=== PATIENT | female | born 1970 | race Caucasian/White ===

== ENCOUNTER 2021-08-02 23:39 | Emergency (ER) | payer OTHER, MEDICAID, SELFPAY ==
[2021-08-02 23:48] VITALS: BP 116/61; PULSE 104; RESP 16; TEMP 36.6; O2SAT 96
[2021-08-02 23:56] LABS: Add Manual Diff / Slide Review NO; Basophils Absolute Auto 0 /uL (0-100); Basophils Percent Auto 0.4 % (0-2); Eosinophils Absolute Auto 100 /uL (0-450); Eosinophils Percent Auto 1.4 % (2-4); Hematocrit 38.4 % (36-46); Hemoglobin 13.1 g/dL (12.0-16.0); Lymphocytes Absolute Auto 2000 /uL (1100-4500); Lymphocytes Percent Auto 20.7 % (25-40); Mean Corpuscular HGB Conc 34.2 % (30-36); Mean Corpuscular Hemoglobin 32.9 PG (26-34); Mean Corpuscular Volume 96.3 fL (80-100); Monocytes Absolute Auto 600 /uL (0-900); Monocytes Percent Auto 6.1 % (3-14); Neutrophils Absolute Auto 6800 /uL (1500-7000); Neutrophils Percent Auto 71.4 % (50-75); Platelet Count 256 X10^3/uL (150-400); Red Blood Cell Count 3.99 X10^6/uL (4.0-5.2); White Blood Cell Count 9.6 X10^3/uL (4.5-11.0)
[2021-08-03] VITALS (25 sets, daily range): BP systolic 98–114; BP diastolic 48–56; PULSE 66–80; RESP 12–52; O2SAT 96–100
[2021-08-03 00:05] LABS: Salicylate < 1.0 mg/dL (<20)
[2021-08-03 00:06] LABS: Acetaminophen < 10 ug/mL (10-30); Alanine Aminotransferase 16 IU/L (<35); Albumin 4.1 g/dL (3.5-5.0); Albumin Globulin Ratio 1.5 (1.0-2.8); Alkaline Phosphatase 81 U/L (38-126); Aspartate Aminotransferase 22 IU/L (14-36); BUN Creatinine Ratio 21.3 (6-22); Bilirubin Total 0.3 mg/dL (0.2-1.3); Blood Urea Nitrogen 17 mg/dL (7-17); Calcium 9.2 mg/dL (8.4-10.2); Carbon Dioxide 31 mmol/L (22-32); Chloride 104 mmol/L (98-107); Estimated Glomerular Filt Rate > 60.0 mL/min (>60); Ethanol (ETOH) < 10 mg/dL; Globulin 2.8 g/dL (1.7-4.1); Glucose 132 mg/dL (70-100); HEMOLYSIS < 15 (0-50); Lipase 48 U/L (23-300); Potassium 3.4 mmol/L (3.4-5.1); Sodium 143 mmol/L (137-145); Total Protein 6.9 g/dL (6.3-8.2)
--- NOTE | 2021-08-03 00:09 | PC.NURSE ---
Call placed to Poison Control, I spoke with pharmacist Arsalan. They reccommended to monitor for a minumum of 6 hours post time of ingestion, monitor for QTc prolongation, if it is greater than 500, give 2 grams Mg Sulfate. Keep Potassium ~4. They stated that seizures, TRACE CLERK depression, and hallucinations, anticholinergic effects may be present but usually at night doses.
[2021-08-03 00:10] LABS: Pregnancy Test Serum,Qual Negative (Negative)
[2021-08-03 00:12] LABS: COVID19 -Nasal RAPID Negative (Negative)
[2021-08-03 00:31] LABS: Magnesium 1.9 mg/dL (1.6-2.3)
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
--- NOTE | 2021-08-03 07:18 | PC.NURSE ---
Pt is sleeping.
--- NOTE | 2021-08-03 08:20 | PC.NURSE ---
Pt is tossing in bed. Attempting to take off cardiac leads. Expressing being uncomfortable but not answering direct questions. Not able to stay awake at this time. VS WNL
--- NOTE | 2021-08-03 10:18 | PC.NURSE ---
Spoke with poison control. Repeating EKG, if no change no further testing needed
--- NOTE | 2021-08-03 11:09 | PC.NURSE ---
Patient is laying down in bed and appears to be sleeping.
--- NOTE | 2021-08-03 12:02 | PC.NURSE ---
Pt is up to the [facility] with RN.
[2021-08-03 12:19] LABS: Appearance Urine UA CLEAR; Bilirubin Urine UA NEGATIVE (NEGATIVE); Color Urine UA YELLOW; Glucose Urine UA NEGATIVE (Negative); Ketones Urine UA NEGATIVE (NEGATIVE); Leukocyte Esterase Urine UA NEGATIVE (NEGATIVE); Nitrite Urine UA NEGATIVE (Negative); Occult Blood Urine UA NEGATIVE (Negative); Protein Urine UA TRACE (Negative); Urobilinogen Urine UA 0.2 E.U./dL (0.2)
[2021-08-03 12:23] LABS: Ur Creatinine Normal (Normal); Ur Specific Gravity Normal (Normal); Urine Tetrahydrocannabinol Negative (Negative); Urine pH Normal (Normal)
[2021-08-03 12:24] LABS: UR Morphine/Opiate cutoff 300 Negative (Negative); Urine Amphetamines Negative (Negative); Urine Barbiturates Negative (Negative); Urine Benzodiazepines Negative (Negative); Urine Cocaine Positive (Negative); Urine MDMA Negative (Negative); Urine Methadone Positive (Negative); Urine Methamphetamines Negative (Negative); Urine Oxycodone Negative (Negative); Urine Phencyclidine Negative (Negative); Urine Tricyclic Antidepressant Positive (Negative)
[2021-08-03 12:26] LABS: pH Urine UA 6.5 (4.5-8.0)
[2021-08-03 12:31] LABS: Bacteria Urine None Seen; Culture Indicated Urine Cult Not Indicated; RBC Urine None Seen (0-5/HPF); Squamous Epithelial Cell Urine 5-10 /HPF (0-5/HPF); WBC Urine None Seen (0-5/HPF)
--- NOTE | 2021-08-03 14:10 | PC.NURSE ---
Attempted again to rouse pt. Pt still unable to stay awake
--- NOTE | 2021-08-03 18:23 | CM.SWNOTE ---
CONSULTING BUSINESS DEVELOPER Assessment CONSULTING BUSINESS DEVELOPER - Clerk Funeral Detail Assessment CONSULTING BUSINESS DEVELOPER/Clerk Funeral Detail Assessment Time Spent with Patient Start date 08/03/21 Visit Start Time 14:25 End date 08/03/21 Visit End Time 14:50 Total time Care Management spent on 25 patient visit-in minutes Mental Health Screening Include Onset, Duration, Intensity Presenting Problem Patient presents to ED via EMS after taking 8 Seraquel and a handful of Hydroxzine last evening. Precipitating Event(s) Patient endorses depression and PTSD and she was taking the medication to go to sleep. Patient Strengths Patient is open to seeking MH outpatient provider. Current Behavioral Health Provider(s) No current providers, patient Include Facility, Provider, Ph. # endorses she used to go to [facility]. Psych. Hx Mental Health and Chemical Patient endorse hx of PTSD, Dependency Cognitive Disorder, Schizophrenia, and ADD. 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 Patient's toxicology is positive for Methadone, Ticyclic Antidepressants and Cocaine. Family Hx of Behavioral Abuse Patient endorses that her partner of 10 years does not always understand and support her MH. Psychiatric Hospitalizations (date(s)/ Patient endorses hx of going location) to inpatient treatment 2-4 times before and endorses she has been to [facility]. Psychosocial information & Support Patient is 51 y/o female who Systems is currently residing at [facility], [place], operated by [facility] and without a home. Patient endorses she lives with partner of 10 years Arnel. Patient endorses her mother as support as well. School/Work Unemployed Legal Concerns Legal Matters - Outstanding Issues None reported Mental Status Orientation (Person/Place/Time) A/Ox4 Stated Mood tired Affect (Congruent with Mood?) euthymic, drowsy, full range, congruent with mood. Thought Content - Specify/Describe None reported Obsessions, Delusions, Hallucinations Thought Processes (Fttydqr-Vczqoyql-Pwqg Circumstantial Frwvuvhb-Owjsybfc-Tkktwycjiy- Wmbutdjkrpvwhf-Wrncdoo-Fwgqyczwdwli- Thought Blocking) Speech (Zyfzxc-Zarm-Kxqwtvd-Rapid-Soft- slurred, rapid Loud-Pressured) Motor (Fmbzgt-Kbybrzegh-Rjvg-Other) normal/slow, not formally assessed Insight (Lpeo-Jiam-Kvun/Limited) fair/limited Judgement (Xuep-Sujc-Opza/Limited) fair/limited Impulse Control (Adequate-Impaired) adequate Memory (Cvnixqwyo-Tpboaw-Gibnni, intact, not formally assessed Impaired-Intact) Concentration (Intact-Impaired) intact Attention (Intact-Impaired) intact Behavior (Appropriate-Inappropriate) appropriate Risk Assessment Suicidal Ideation (Plan) No Homicidal Ideation (Plan) No Comment Patient denies SI and HI Intervention Intervention CONSULTING BUSINESS DEVELOPER enters room to meet with patient. Patient endorses that she took the pills to go to sleep. Patient denies SI and states that she has taking pills before with intent to kill self and has been to inpatient hospitals before. Patient denies seeking inpatient at this ED encounter . Patient endorses that she is open to seeing a outpatient provider. Patient discusses that her partner does not understand her depression and MH and she does not always feel supported. Patient endorses she feels safe to return to home with partner. CONSULTING BUSINESS DEVELOPER provides patient with crisis contact information and a list of providers that accept her insurance. It is the opinion of this CONSULTING BUSINESS DEVELOPER that patient is safe to d/c to home. CONSULTING BUSINESS DEVELOPER meets with patient's partner and he indicates he will be a safe support for patient. CONSULTING BUSINESS DEVELOPER reviews the above with ED provider Dr. Crespo who indicates agreement and understanding. Plan RA Plan Patient to d/c to home when medically clear. TORIN Martinez
== END 2021-08-03 17:43 | disposition home or self-care (01) ==
PROVIDERS: Emergency Medicine; Emergency Provider Emergency Medicine
DX: T43.594A Poisoning by other antipsychotics and neuroleptics, undetermined, initial encounter (principal); Z20.822 Contact with and (suspected) exposure to COVID-19
CPT/HCPCS: 80053; 80305; 80320; 80329; 81001; 83690; 83735; 84703; 85025; 87635; 93005; 99284; C9803; G0480

== ENCOUNTER 2021-08-04 18:00 | Emergency (ER) | payer OTHER, MEDICAID, SELFPAY ==
[2021-08-04 18:25] VITALS: BP 140/74; PULSE 89; RESP 22; TEMP 36.7; O2SAT 100
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
[2021-08-04] MEDS: LIDO 1%/SOD BICARB 8.4% (10ML) 10 ML SYRINGE INJ (20:31)
== END 2021-08-04 21:42 | disposition home or self-care (01) ==
PROVIDERS: Emergency Provider Emergency Medicine
DX: S02.2XXA Fracture of nasal bones, initial encounter for closed fracture (principal); S01.511A Laceration without foreign body of lip, initial encounter; K08.89 Other specified disorders of teeth and supporting structures; Y04.2XXA Assault by strike against or bumped into by another person, initial encounter
CPT/HCPCS: 12011; 70486; 99284